=== PATIENT | male | born 2000 | race Caucasian/White ===

== ENCOUNTER 2023-04-08 18:10 | Inpatient (IN) | payer MEDICAID, OTHER ==
[2023-04-08 21:10] LABS: Amphetamine Screen,Urine Not Detected (NotDetected); Barbiturate Screen,Urine Not Detected (NotDetected); Benzodiazepines Screen,Urine Not Detected (NotDetected); Cocaine Screen,Urine Not Detected (NotDetected); Methadone Screen, Urine Not Detected (NotDetected); Opiate Screen,Urine Not Detected (NotDetected); Oxycodone Screen, Urine Not Detected (NotDetected); Phencyclidine Screen,Urine Not Detected (NotDetected); Tricyclic Antidepressant,Urine Not Detected (NotDetected); Urn Cannabinoid Scrn Not Detected (NotDetected)
[2023-04-09] MEDS ORDERED: HALOPERIDOL LACTATE 5 MG/ML 1 ML VIAL IM PRN (00:35)
[2023-04-09] MEDS ORDERED: IBUPROFEN 600 MG TAB PO PRN (00:35)
[2023-04-09] MEDS ORDERED: MAG HYDROX/AL HYDROX/SIMETH 30 ML CUP PO PRN (00:35)
[2023-04-09] MEDS ORDERED: MAGNESIUM HYDROXIDE 2,400 MG/10 ML CUP PO PRN (00:35)
[2023-04-09] MEDS ORDERED: ACETAMINOPHEN TAB 325 MG TAB PO PRN (00:35)
[2023-04-09] MEDS ORDERED: LORazepam 2 MG/ML INJ IM PRN (00:35)
--- NOTE | 2023-04-09 01:09 | ED ---
General Adult HPI - General Chief complaint: Psychiatric Symptoms Stated complaint: Mental Health Time Seen by Provider: 04/08/23 22:30 Source: patient Mode of arrival: ambulatory Limitations: no limitations - History of Present Illness Initial comments: Patient is 23-year-old male who presents to the emergency department for psychiatric evaluation. Patient states he has suicidal thoughts without plan or intention. States he is depressed and grieving the loss of his dad. He denies homicidal ideation. Denies visual and auditory hallucinations. Reports drinking 1 pint of liquor daily. Last drink was a few hours ago prior to arrival. Denies drug use. Patient sent from [facility] today. - Related Data Allergies Allergy/AdvReac Type Severity Reaction Status Date / Time No Known Allergies Allergy Verified 04/08/23 19:24 Review of Systems ROS Statement: Those systems with pertinent positive or pertinent negative responses have been documented in the HPI. ROS Other: All systems not noted in ROS Statement are negative. Past Medical History Past Medical History: Hypertension History of Any Multi-Drug Resistant Organisms: None Reported Past Surgical History: No Surgical Hx Reported Past Psychological History: Bipolar, Depression Smoking Status: Current every day smoker Past Alcohol Use History: Daily Past Drug Use History: None Reported General Exam Limitations: no limitations General appearance: alert, in no apparent distress Head exam: Present: atraumatic, normocephalic, normal inspection Respiratory exam: Present: normal lung sounds bilaterally. Absent: respiratory distress, wheezes, rales, rhonchi, stridor Cardiovascular Exam: Present: regular rate, normal rhythm, normal heart sounds. Absent: systolic murmur, diastolic murmur, rubs, gallop, clicks Psychiatric exam: Present: normal affect, depressed Skin exam: Present: warm, dry, intact, normal color. Absent: rash Course Vital Signs 04/08/23 19:21 Temperature 98.6 F Pulse Rate 111 H Respiratory 20 Rate Blood Pressure 145/84 O2 Sat by Pulse 97 Oximetry Medical Decision Making - Medical Decision Making Was pt. sent in by a medical professional or institution ([facility], PLATER APPRENTICE, urgent care, hospital, or prison...) When possible be specific @ -[facility] today Did you speak to anyone other than the patient for history (EMS, parent, family, police, friend...)? What history was obtained from this source @ -No Did you review nursing and triage notes (agree or disagree)? Why? @ -I reviewed and agree with nursing and triage notes Were old charts reviewed (outside hosp., previous admission, EMS record, old EKG, old radiological studies, urgent care reports/EKG's, prison records)? Report findings @ -No old charts were reviewed Differential Diagnosis (chest pain, altered mental status, abdominal pain women, abdominal pain men, vaginal bleeding, weakness, fever, dyspnea, syncope, headache, dizziness, GI bleed, back pain, seizure, CVA, palpatations, mental health)? @ -Differential Mental Health Depression, anxiety, bipolar, psychosis, schizophrenia, borderline personality, situational depression, adjustment disorder, behavioral disorder, brain tumor, malingering, substance abuse, encephalopathy, medication reaction, dementia, hypothyroidism, degenerative neurologic disorder, lupus.... This is not meant to be all-inclusive list EKG interpreted by me (3pts min.). @ -As above X-rays interpreted by me (1pt min.). @ -None done CT interpreted by me (1pt min.). @ -None done U/S interpreted by me (1pt. min.). @ -None done What testing was considered but not performed or refused? (CT, X-rays, U/S, labs)? Why? @ -None What meds were considered but not given or refused? Why? @ -None Did you discuss the management of the patient with other professionals (professionals i.e. , PA, PLATER APPRENTICE, lab, RT, psych nurse, social services analyst, inspector tool, teacher, marketing officer, case management director)? Give summary @ -No Was smoking cessation discussed for >3mins.? @ -No Was critical care preformed (if so, how long)? @ -No Were there social determinants of health that impacted care today? How? (Homelessness, low income, unemployed, alcoholism, drug addiction, transportation, low edu. Level, literacy, decrease access to med. care, penitentiary, rehab)? @ -No Was there de-escalation of care discussed even if they declined (Discuss DNR or withdrawal of care, Hospice)? DNR status @ -No What co-morbidities impacted this encounter? (DM, HTN, Smoking, COPD, CAD, Cancer, CVA, ARF, Chemo, Hep., AIDS, mental health diagnosis, sleep apnea, morbid obesity)? @Depression Was patient admitted / discharged? Hospital course, mention meds given and route, prescriptions, significant lab abnormalities, going to OR and other pertinent info. @Patient presenting with suicidal ideation. Further medical testing with laboratory studies and imaging not indicated at this time. Breathalyzer is 0.06. Patient is cleared medically for EPS. EPS evaluated patient and I spoke with him over the phone apparently [facility] fax over a report stating patient had plans to park his heading repairer will track. Also the patient has been hallucinating his dad asking him to "come with him." Patient admitted to psychiatric floor for further evaluation and management. Undiagnosed new problem with uncertain prognosis? @ -No Drug Therapy requiring intensive monitoring for toxicity (Heparin, Nitro, Insulin, Cardizem)? @ -No Were any procedures done? @ -No Diagnosis/symptom? @ -Suicidal ideation, hallucination Acute, or Chronic, or Acute on Chronic? @Acute Uncomplicated (without systemic symptoms) or Complicated (systemic symptoms)? @ -default Side effects of treatment? @ -No Exacerbation, Progression, or Severe Exacerbation? @ -No Poses a threat to life or bodily function? How? (Chest pain, [place], NM, pneumonia, PE, COPD, DKA, ARF, appy, cholecystitis, CVA, Diverticulitis, Homicidal, Suicidal, threat to staff... and all critical care pts) @ -Yes Dr. Oreilly is my attending - Lab Data Lab Results 04/08/23 Range/Units 20:07 Urine Opiates Screen Not Detected (NotDetected) Ur Oxycodone Screen Not Detected (NotDetected) Urine Methadone Screen Not Detected (NotDetected) Ur Propoxyphene Screen Not Detected (NotDetected) Ur Barbiturates Screen Not Detected (NotDetected) U Tricyclic Antidepress Not Detected (NotDetected) Ur Phencyclidine Scrn Not Detected (NotDetected) Ur Amphetamines Screen Not Detected (NotDetected) U Methamphetamines Scrn Not Detected (NotDetected) U Benzodiazepines Scrn Not Detected (NotDetected) Urine Cocaine Screen Not Detected (NotDetected) U Marijuana (THC) Screen Not Detected (NotDetected) Disposition Clinical Impression: Suicidal ideation Disposition: ADMITTED IP TO THIS HOSP Condition: Stable
[2023-04-09] MEDS: LORazepam 1 MG TAB PO PRN ×3 (01:56→20:08)
[2023-04-09] MEDS: chlordiazePOXIDE 25 MG CAP PO SCH ×3 (08:41→20:56)
[2023-04-09] MEDS: THIAMINE 100 MG TAB PO SCH (08:41)
[2023-04-09] MEDS: NICOTINE 14MG/24HR PATCH TRANSDERM SCH (08:41)
[2023-04-09] MEDS: NICOTINE GUM (POLACRILEX) 2 MG GUM BUCCAL PRN ×3 (13:25→21:12)
--- NOTE | 2023-04-09 13:49 | P.HP ---
Psychiatric H&P - . H&P Date: 04/09/23 History & Physical: Allergies Allergy/AdvReac Type Severity Reaction Status Date / Time No Known Allergies Allergy Verified 04/08/23 19:24 Vital Signs Temp 98.1 F 04/09/23 02:07 Pulse 106 H 04/09/23 02:07 Resp 18 04/09/23 02:09 BP 125/75 04/09/23 02:07 Pulse Ox 97 04/09/23 02:07 FiO2 Intake & Output 04/08/23 04/09/23 04/09/23 18:59 06:59 18:59 Weight 94.4 kg Laboratory Last Values Urine Opiates Screen Not Detected (NotDetected) 04/08/23 20:07 Ur Oxycodone Screen Not Detected (NotDetected) 04/08/23 20:07 Urine Methadone Screen Not Detected (NotDetected) 04/08/23 20:07 Ur Propoxyphene Screen Not Detected (NotDetected) 04/08/23 20:07 Ur Barbiturates Screen Not Detected (NotDetected) 04/08/23 20:07 U Tricyclic Antidepress Not Detected (NotDetected) 04/08/23 20:07 Ur Phencyclidine Scrn Not Detected (NotDetected) 04/08/23 20:07 Ur Amphetamines Screen Not Detected (NotDetected) 04/08/23 20:07 U Methamphetamines Scrn Not Detected (NotDetected) 04/08/23 20:07 U Benzodiazepines Scrn Not Detected (NotDetected) 04/08/23 20:07 Urine Cocaine Screen Not Detected (NotDetected) 04/08/23 20:07 U Marijuana (THC) Screen Not Detected (NotDetected) 04/08/23 20:07 Coronavirus (PCR) Not Detected (Not Detectd) 04/09/23 00:07 04/09/23 13:42 IDENTIFYING DATA: Patient is a 23-year-old male who is currently living with his stepparents in a house, has no kids is single, 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 HPI: Patient presented to the hospital yesterday for psychiatric evaluation as patient was having depression and suicidal thoughts and also a history of alcohol use. Patient's urine drug screen was negative. Patient was admitted voluntarily to the mental health unit and seen this morning agreeable to speak. Patient's states that he has been taking his "bipolar meds" and states that this been helping out with his anger however states that he has been hearing voices including his father's voice/at nighttime. He states that "he wants me to join him" and states that this is been going on for about a year now. He states that he broke down at home and his mom was worried about him because he was drinking heavily. He states that he recently relapsed on alcohol and claims that his binging about over a pint of vodka per day. He states that he usually takes the patrol injection however has missed it and is willing to get back on it. He claims that he has been having more thoughts of suicide however he did not have a specific plan. Claims that his mood has been depressed, he is endorsing anxiety. States that his sleep has been on and off. Appetite is fair. He states that his is having minor withdrawal symptoms, no shakes or tremors. Patient denies any flight of ideas racing thoughts and increased in goal directed behavior. Patient admits to using cigarettes daily. He claims that he has a long history of alcohol use disorder and has been to rehab twice in the past. PAST PSYCHIATRIC HISTORY: Patient states that he has a history of alcohol use disorder and bipolar disorder. Is currently on vivitrol monthly injection for alcohol cravings and also Depakote for mood stabilization. He claims that he was last psychiatrically hospitalized about 3 years ago at [facility]. He claims that he currently follows up with his psychiatrist Dr. Buchanan through [facility]. Claims that he did attempt to hang himself about 3 years ago. PMH:Past Medical History: Hypertension History of Any Multi-Drug Resistant Organisms: None Reported Past Surgical History: No Surgical Hx Reported Past Psychological History: Bipolar, Depression Smoking Status: Current every day smoker Past Alcohol Use History: Daily Past Drug Use History: None Reported ALLERGIES: as per EMR CHEMICAL DEPENDENCY HISTORY: as per HPI FAMILY PSYCHIATRIC/SUBSTANCE USE HISTORY: He claims that there is several people with mental health issues on his father's side. SOCIAL HISTORY: Patient was born and raised in [place] and also in [place], [place]. He claims that he completed up to the 10th grade in school. 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 He lives with his mother and step mom and dad. They live in a house. He is single. He claims that he did go to [facility] for drug related charges and also domestic violence charge. MENTAL STATUS EXAM: General Appearance: Patient appears to be well built, mildly disheveled, stated age is alert, directable, and attempts to cooperate. Patient appears to have poor hygiene and grooming. Behavior: Patient is seated without any agitated behavior. And attempts to cooperate. Speech: Patient's speech is fluent and nonpressured. [place] Mood/Affect: Patient reports their mood is depressed and anxious, affect is congruent and constricted. Suicidality/Homicidality: Patient denies having any homicidal ideation intent or plan. Denies any suicidal ideations intent or plan Perceptions: Patient denies any visual hallucinations and denies any auditory hallucinations Though content/process: There is no evidence of any delusional thought content and thought process is linear and goal-directed. Memory and concentration: AOX3, grossly intact for the purposes of this session. Can spell "WORLD" backwards Judgment and insight: poor STRENGTHS/WEAKNESSES: strength is that patient is resilient. Weakness is that patient has poor judgment and is impulsive INTELLECT: average IMPRESSIONS: Bipolar disorder, current episode depressed with psychotic features Alcohol use disorder, severe dependence Nicotine dependence PLAN: -Patient is admitted under voluntary status to MHU for stabilization of psychiatric symptoms and safety. Patient has signed adult voluntary form and medication consent and is placed in patient's chart. -Medications : Will start patient on his home dose of depakote 500 mg qhs for mood stabilization, buspar tid prn for anxiety, seroquel 50 mg qhs for mood stabilization/psychosis. patient requested to receive the vivitrol injection the day before he will be discharged. librium 25 mg tid for etoh withdrawal. -Ativan and Haldol PRN for agitation/aggression -Started thiamine, MVM for etoh use -CIWA protocol with Ativan PRN for ETOH withdrawal -Patient was counselled on substance abuse and desired to cut back on use -Patient was informed of the risks, benefits and side effects of the medication and patient verbally consented to taking the medications. Patient signed med consent form and was placed in chart. -Internal Medicine consult to perform medical evaluation and physical. -NRT - nicotine patch -SW on board for discharge planning. Encourage patient to participate in groups to work on coping skills. 04/09/23 13:49
[2023-04-09] MEDS: busPIRone HCl 10 MG TAB PO PRN ×2 (15:14→20:56)
[2023-04-09 15:49] LABS: Appearance,Urine Clear (Clear); Bilirubin,Urine Negative (Negative); Blood,Urine Negative (Negative); Calcium Oxalate Crystals,Urine Moderate /hpf; Color,Urine Yellow; Glucose,Urine (UA) Negative (Negative); Ketones,Urine Negative (Negative); Leukocyte Esterase,Urine Small (Negative); Mucus,Urine Rare /hpf; Nitrite,Urine Negative (Negative); PH, Urine 6.5 (5.0-8.0); Protein,Urine Trace (Negative); Specific Gravity,Urine 1.025 (1.001-1.035); Urobilinogen,Urine <2.0 mg/dL (<2.0); WBC,Urine 3 /hpf (0-5)
[2023-04-09] MEDS ORDERED: DIVALPROEX ER 500 MG TAB.ER.24H PO SCH (18:00)
[2023-04-09] MEDS: QUEtiapine 50 MG TAB PO SCH (20:56)
[2023-04-10] MEDS: NICOTINE 14MG/24HR PATCH TRANSDERM SCH (08:35)
[2023-04-10] MEDS: chlordiazePOXIDE 25 MG CAP PO SCH (08:35)
[2023-04-10] MEDS: THIAMINE 100 MG TAB PO SCH (08:35)
[2023-04-10] MEDS: busPIRone HCl 10 MG TAB PO PRN ×3 (08:36→20:24)
[2023-04-10] MEDS: DIVALPROEX ER 250 MG TAB.ER.24H PO SCH ×2 (10:32→20:21)
[2023-04-10] MEDS: NICOTINE GUM (POLACRILEX) 2 MG GUM BUCCAL PRN ×3 (10:33→20:24)
[2023-04-10 10:34] LABS: Basophils % (A) 0 %; Eosinophils # (A) 0.1 k/uL (0-0.7); Eosinophils % (A) 2 %; HCT 44.8 % (39.0-53.0); HGB 15.4 gm/dL (13.0-17.5); Lymphocytes % (A) 20 %; MCH 30.9 pg (25.0-35.0); MCHC 34.4 g/dL (31.0-37.0); MCV 89.8 fL (80.0-100.0); Mean Platelet Volume 9.1; Monocytes # (A) 0.2 k/uL (0-1.0); Monocytes % (A) 5 %; Neutrophils # (A) 3.6 k/uL (1.3-7.7); Neutrophils % (A) 72 %; Platelet Count 180 k/uL (150-450); RBC 4.99 m/uL (4.30-5.90); RDW 12.7 % (11.5-15.5); WBC 4.9 k/uL (3.8-10.6)
[2023-04-10 10:44] LABS: ALT 75 U/L (4-49); AST 47 U/L (17-59); African American GFR (CKD) >90 (>60 ml/min/1.73 sqM); Albumin 4.2 g/dL (3.5-5.0); Alkaline Phosphatase 80 U/L (38-126); Anion Gap 8 mmol/L; Blood Urea Nitrogen 14 mg/dL (9-20); Calcium 9.5 mg/dL (8.4-10.2); Carbon Dioxide 28 mmol/L (22-30); Chloride 103 mmol/L (98-107); Glucose 92 mg/dL (74-99); Non-African American GFR(CKD) >90 (>60 ml/min/1.73 sqM); Potassium 4.5 mmol/L (3.5-5.1); Sodium 139 mmol/L (137-145); Total Bilirubin 0.6 mg/dL (0.2-1.3); Total Protein 6.9 g/dL (6.3-8.2)
--- NOTE | 2023-04-10 11:43 | P.PN ---
Progress Note - Text Progress Note Date: 04/10/23 Interval History: Patient was seen [wandering the hallways] and was directable and agreeable to speak with bid writer in the office. Patient claims that he is doing a bit better today with regards to his mood and anxiety. He states that he slept fairly last night and claims to be feeling fairly tired this morning as well. He states that after he took his medications was just going to head back to his room for a nap. We spoke about the medications that are likely making him feel more sedated. He states that is okay with continuing on with treatment and has been trying to go to groups. He states that his withdrawal symptoms have been improving and he is denying any tremors or shakes. States that his anxiety is also improving mildly since yesterday. States that he slept fairly throughout the night and has a fair appetite. At this time patient denies any suicidal or homical ideations, intent or plan. Patient denies any auditory, visual hallucinations and denies any paranoia or delusions. Patient denies any side effects from the medications and has been compliant with meds. Mental Status Exam: General Appearance: Patient appears to be well built, mildly disheveled, stated age is alert, directable, and attempts to cooperate. Patient appears to have improving hygiene and grooming. Behavior: Patient is seated without any agitated behavior. attempts to cooperate. Speech: Patient's speech is fluent and nonpressured. [place], improving mildly Mood/Affect: Patient reports their mood is depressed and anxious, affect is congruent and constricted. Suicidality/Homicidality: Patient denies having any homicidal ideation intent or plan. Denies any suicidal ideations intent or plan Perceptions: Patient denies any visual hallucinations and denies any auditory hallucinations Though content/process: There is no evidence of any delusional thought content and thought process is linear and goal-directed. Focused on discharge. Memory and concentration: AOX3, grossly intact for the purposes of this session Judgment and insight: Improving mildly. IMPRESSIONS: Bipolar disorder, current episode depressed with psychotic features Alcohol use disorder, severe dependence Nicotine dependence PLAN: -Patient is admitted under voluntary status to MHU for stabilization of psychi atric symptoms and safety. Patient has signed adult voluntary form and medication consent and is placed in patient's chart. -Medications : change depakote 250 mg BID dosing for mood stabilization, in crease buspar tid prn for anxiety, continue seroquel 50 mg qhs for mood stabilization/psychosis. patient requested to receive the vivitrol injection and will be given thursday morning before he will be discharged. decrease/taper down over the weekend pts librium down to 20 mg tid for etoh withdrawal. -Ativan and Haldol PRN for agitation/aggression -thiamine, MVM for etoh use -CIWA protocol with Ativan PRN for ETOH withdrawal -Internal Medicine consult to perform medical evaluation and physical. -NRT - nicotine patch -SW on board for discharge planning. Encourage patient to participate in groups to work on coping skills. likely dicharge thursday if patient is doing better by then.
[2023-04-10] MEDS: haloperidoL 5 MG TAB PO PRN (18:45)
[2023-04-10] MEDS: LORazepam 1 MG TAB PO PRN (18:45)
[2023-04-10] MEDS: QUEtiapine 50 MG TAB PO SCH (20:21)
--- NOTE | 2023-04-11 01:28 | P.MDCNMH ---
History of Present Illness H&P Date: 04/10/23 Chief Complaint: medicla evaluation 23 year old male presented for psych evaluation , due to depression , and suicidal ideation , patient is grieving his dad. he denies any hallucinations. he denies any fever, chills, cough, sore throat, chest pain , trouble breathing , nausea , vomiting, abd pain , changes in urinary or bowel habits. he admits to tobacco smoking, he denies illicit drugs or alcohol Review of Systems Pertinent positives as noted in HPI. All other systems were reviewed and are negative Past Medical History Past Medical History: Hypertension History of Any Multi-Drug Resistant Organisms: None Reported Past Surgical History: No Surgical Hx Reported Past Anesthesia/Blood Transfusion Reactions: No Reported Reaction Past Psychological History: Bipolar, Depression Smoking Status: Current every day smoker Past Alcohol Use History: Daily Additional Past Alcohol Use History / Comment(s): pt statement varies between a pint and a fifth of vodka dailyt Past Drug Use History: Cocaine Additional Drug Use History / Comment(s): pt quit drugs 5 years ago, hx coke, crack, meth Medications and Allergies Allergies Allergy/AdvReac Type Severity Reaction Status Date / Time No Known Allergies Allergy Verified 04/08/23 19:24 Physical Exam Constitutional: No acute distress, Eyes: Anicteric sclerae, moist conjunctiva, Pupils equal round reactive to light ENMT: NC/AT Oropharynx clear, no erythema, or exudates Lungs: Clear to auscultation Clear to percussion Normal respiratory effort, no accessory muscle use Cardiovascular: Heart regular in rate and rhythm, No murmurs, gallops, or rubs No peripheral edema Abdominal: Soft Nontender, no guarding, rebound or rigidity Abdomen moving with respiration Normoactive bowel sounds No hepatomegaly, No splenomegaly No palpable mass No abdominal wall hernia noted Skin: Normal temperature, tone, texture, turgor Extremities: No digital cyanosis No clubbing Pedal pulses intact and symmetrical Radial pulses intact and symmetrical No calf tenderness Psychiatric: Alert and oriented to person, place and time Neuro Muscles Strength 5/5 in all 4 extremities Sensation to light touch grossly present throughout Cranial Nerve Examination - Cranial Nerves Cranial Nerve II- Optic: Intact Cranial Nerve III- Oculomotor: Intact Cranial Nerve IV- Trochlear: Intact Cranial Nerve V- Trigeminal: Intact Cranial Nerve - Abducens: Intact Cranial Nerve VII- Facial: Intact Cranial Nerve VIII- Auditory: Intact Cranial Nerve IX- Glossopharyngeal: Intact Cranial Nerve X- Vagus: Intact Cranial Nerve XI- Accessory: Intact Cranial Nerve XII- Hypoglossal: Intact Results CBC & Chem 7: 04/10/23 10:00 04/10/23 10:00 Labs: Abnormal Lab Results - Last 24 Hours (Table) 04/10/23 Range/Units 10:00 ALT 75 H (4-49) U/L Assessment and Plan Assessment: depression and suicidal ideation management per psych tobacco smoking NRT offered counseled to quit smoking blood work reviewed , unremarkable Hgb 15.4 WBC 4.9 Bun 14 Cr 0.85 thank you for this consultation
[2023-04-11] MEDS: NICOTINE 14MG/24HR PATCH TRANSDERM SCH (08:21)
[2023-04-11] MEDS: THIAMINE 100 MG TAB PO SCH (08:22)
[2023-04-11] MEDS: DIVALPROEX ER 250 MG TAB.ER.24H PO SCH ×2 (08:22→20:31)
[2023-04-11] MEDS: busPIRone HCl 10 MG TAB PO PRN (08:24)
--- NOTE | 2023-04-11 11:22 | P.PN ---
Progress Note - Text Progress Note Date: 04/11/23 Interval History: Patient was seen wandering the hallways and was directable and agreeable to sp constanza with health technical writer in the office. He states that his mood is "good ". He reports tolerating the current medications okay but says that he has been very hungry. Discussed potential side effects of the medications including increased appetite, weight gain, hair loss, etc. Patient admits that he was less interested in medications in the past but has been able to understand the need for treatment more currently. He hopes to continue to maintain sobriety. Discussed the recommendations of attending call anonymous meetings in addition to receiving vivitrol injections. Patient denies current symptoms of alcohol withdrawal. He admits to having bouts of anxiety in between times when he is drinking. Patient was provided psychoeducation on alcohol and its effects on the brain, anxiety, etc. He reports sleeping well. He also states he has been participating in groups. He is noted to be interacting with others on the unit. He is future oriented and states that he understands why his mother wanted him to be admitted here. At this time patient denies any suicidal or homicidal ideations, intent or plan. Patient denies any auditory, visual hallucinations and denies any paranoia or delusions. Patient denies any side effects from the medications and has been compliant with meds. Mental Status Exam: General Appearance: Patient appears to be well built, mildly disheveled, stated age is alert, directable, and attempts to cooperate. Patient appears to have improving hygiene and grooming. Behavior: Patient is seated without any agitated behavior. attempts to cooperate. Speech: Patient's speech is fluent and nonpressured. [place], improving mildly Mood/Affect: Patient reports their mood is "good", affect is saf and constricted. Suicidality/Homicidality: Patient denies having any homicidal ideation intent or plan. Denies any suicidal ideations intent or plan Perceptions: Patient denies any visual hallucinations and denies any auditory hallucinations Though content/process: There is no evidence of any delusional thought content and thought process is linear and goal-directed. Memory and concentration: AOX3, grossly intact for the purposes of this session Judgment and insight: Improving mildly. IMPRESSIONS: Bipolar disorder Alcohol use disorder, severe dependence, in withdrawal Nicotine dependence PLAN: -Patient is admitted under voluntary status to MHU for stabilization of psychiatric symptoms and safety. Patient has signed adult voluntary form and medication consent and is placed in patient's chart. -Medications : Continue depakote 250 mg BID dosing for mood stabilization Change buspar to 10 mg BID for anxiety Stop seroquel 50 mg qhs as it is likely contributing to increased appetite vivitrol injection will be given thursday morning before he will be discharged. decrease/taper down to 10 mg tid for etoh withdrawal and decrease to 5 mg TID tomorrow -Ativan and Haldol PRN for agitation/aggression -thiamine, MVM for etoh use -CIWA protocol with Ativan PRN for ETOH withdrawal -Internal Medicine consult to perform medical evaluation and physical. -NRT - nicotine patch -SW on board for discharge planning. Encourage patient to participate in groups to work on coping skills. likely dicharge thursday if patient is doing better by then.
[2023-04-11] MEDS: LORazepam 1 MG TAB PO PRN ×2 (11:28→17:14)
[2023-04-11] MEDS: NICOTINE GUM (POLACRILEX) 2 MG GUM BUCCAL PRN (17:15)
[2023-04-11] MEDS: busPIRone HCl 10 MG TAB PO SCH (20:31)
[2023-04-11] MEDS: haloperidoL 5 MG TAB PO PRN (20:55)
[2023-04-12 05:06] VITALS: RESP 16
[2023-04-12] MEDS: NICOTINE 14MG/24HR PATCH TRANSDERM SCH (08:34)
[2023-04-12] MEDS: THIAMINE 100 MG TAB PO SCH (08:35)
[2023-04-12] MEDS: busPIRone HCl 10 MG TAB PO SCH ×3 (08:35→20:27)
[2023-04-12] MEDS: DIVALPROEX ER 250 MG TAB.ER.24H PO SCH (08:35)
[2023-04-12] MEDS: LORazepam 1 MG TAB PO PRN ×2 (12:01→20:26)
[2023-04-12] MEDS: haloperidoL 5 MG TAB PO PRN (12:01)
--- NOTE | 2023-04-12 14:33 | P.PN ---
Progress Note - Text Progress Note Date: 04/12/23 Interval History: Patient was seen wandering the hallways and was directable and agreeable to wm apodaca with expert medical writer. He states that his mood is "anxious". He states that he feels it is "hard being away from home ". He reports working at home and rarely having to leave the home for very long. As a result, patient states that he has been feeling slightly anxious and wonders if his medication could be increased. Discussed increasing BuSpar and patient was agreeable with this. Patient states that his appetite has stabilized and is no longer feeling as hungry as he did yesterday. However, patient states that he had trouble falling asleep since the discontinuation of Seroquel. As a result, discussed dosing Depakote all at bedtime and patient was agreeable with this. Will proceed with Librium taper which patient is agreeable with; he denies symptoms of alcohol withdrawal currently. Patient is also agreeable with receiving his Vivitrol injection tomorrow. He also states he has been participating in groups. At this time patient denies any suicidal or homicidal ideations, intent or plan. Patient denies any auditory, visual hallucinations and denies any paranoia or delusions. Patient denies any side effects from the medications and has been compliant with meds. Mental Status Exam: General Appearance: Patient appears to be well built, stated age is alert, directable, and attempts to cooperate. Patient appears to have improving hygiene and grooming. Behavior: Patient is seated without any agitated behavior. attempts to cooperate. No tremors Speech: Patient's speech is fluent and nonpressured. [place], improving mildly Mood/Affect: Patient reports their mood is "anxious", affect is congruent and constricted. Suicidality/Homicidality: Patient denies having any homicidal ideation intent or plan. Denies any suicidal ideations intent or plan Perceptions: Patient denies any visual hallucinations and denies any auditory hallucinations Though content/process: There is no evidence of any delusional thought content and thought process is linear and goal-directed. Memory and concentration: AOX3, grossly intact for the purposes of this session Judgment and insight: Improving mildly. IMPRESSIONS: Bipolar disorder Alcohol use disorder, severe dependence, in withdrawal Nicotine dependence PLAN: -Patient is admitted under voluntary status to MHU for stabilization of psychiatric symptoms and safety. Patient has signed adult voluntary form and medication consent and is placed in patient's chart. -Medications : Change depakote to 500 qHS for mood stabilization Increase buspar to 15 mg BID for anxiety vivitrol injection will be given thursday morning before he will be discharged. Discontinue Librium today -Ativan and Haldol PRN for agitation/aggression -thiamine, MVM for etoh use -CIWA protocol with Ativan PRN for ETOH withdrawal -Internal Medicine consult to perform medical evaluation and physical. -NRT - nicotine patch -SW on board for discharge planning. Encourage patient to participate in groups to work on coping skills. likely dicharge thursday if patient is doing better by then.
[2023-04-12] MEDS ORDERED: DIVALPROEX ER 500 MG TAB.ER.24H PO SCH (21:00)
[2023-04-12] MEDS ORDERED: busPIRone HCl 5 MG TAB PO SCH (21:00)
[2023-04-13] MEDS: busPIRone HCl 10 MG TAB PO SCH (08:21)
[2023-04-13] MEDS: NICOTINE 14MG/24HR PATCH TRANSDERM SCH (08:21)
[2023-04-13] MEDS: THIAMINE 100 MG TAB PO SCH (08:21)
[2023-04-13] MEDS ORDERED: NALTREXONE MICROSPHERES 380 MG VIAL (NO COST - VIVITROL) IM ONE (09:00)
--- NOTE | 2023-04-13 10:26 | P.DS ---
Providers Date of admission: 04/09/23 00:20 Expected date of discharge: 04/13/23 Attending physician: Kehinde Torres MD Consults: 04/09/23 00:35 Consult Physician Routine Consulting Provider: Floyd Medina Consult Reason/Comments: [facility]&p medical managment Do you want consulting provider notified?: Already Contacted Primary care physician: Stated None - Discharge Diagnosis(es) (1) Bipolar disorder, curr episode depressed, severe, w/psychotic features Current Visit: Yes Status: Acute Priority: High (2) Alcohol use disorder, severe, dependence Current Visit: Yes Status: Acute Priority: High (3) Nicotine dependence Current Visit: Yes Status: Acute Priority: Low Hospital Course: Admission HPI: Admission note was completed by radio script writer "Patient is a 23-year-old male who is currently living with his stepparents in a house, has no kids is single, 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 Patient presented to the hospital yesterday for psychiatric evaluation as patient was having depression and suicidal thoughts and also a history of alcohol use. Patient's urine drug screen was negative. Patient was admitted voluntarily to the mental health unit and seen this morning agreeable to speak. Patient's states that he has been taking his "bipolar meds" and states that this been helping out with his anger however states that he has been hearing voices including his father's voice/at nighttime. He states that "he wants me to join him" and states that this is been going on for about a year now. He states that he broke down at home and his mom was worried about him because he was drinking heavily. He states that he recently relapsed on alcohol and claims that his binging about over a pint of vodka per day. He states that he usually takes the patrol injection however has missed it and is willing to get back on it. He claims that he has been having more thoughts of suicide however he did not have a specific plan. Claims that his mood has been depressed, he is endorsing anxiety. States that his sleep has been on and off. Appetite is fair. He states that his is having minor withdrawal symptoms, no shakes or tremors. Patient denies any flight of ideas racing thoughts and increased in goal directed behavior. Patient admits to using cigarettes daily. He claims that he has a long history of alcohol use disorder and has been to rehab twice in the past." Hospital course: Upon admission to the unit patient was directable and agreeable to commence treatment and signed adult voluntary form . Patient got along well with other patients on the unit and followed unit protocol. Patient was compliant with the medications and denied any side effects throughout hospital course. Patient was started on scheduled Librium with taper for alcohol withdrawal symptoms, Depakote 500 mg daily at bedtime for mood stabilization, BuSpar 20 mg 3 times a day for anxiety, patient was tried on Seroquel however due to increased appetite and this was discontinued. Patient is currently on vivitrol injection however it was being held due to patient request and will be given today on 04/13 prior to discharge. Patient spoke of his stressors and engaged in therapy both group and individual. Patient was also seen by medical team for history and physical exam. Throughout the course of the hospitalization patient gradually improved with regards to mood, anxiety, hallucinations/voices, sleep and became more future oriented with improved insight and judgment. On the day of discharge patient denied any suicidal or homicidal ideations intent or plan denied any auditory or visual hallucinations. Patient endorsed wanting to live for his health and family. The patient denied any access to guns or weapons. Patient denied any paranoia and did not endorse any delusions. Patient does have a significant history of substance abuse and was counseled on abstaining from all substances including alcohol and marijuana. Patient was offered however declined inpatient substance-abuse rehab. Patient elected to do outpatient substance use treatment program through [facility]. Patient was also counseled on the medications and need for regular compliance and was encouraged to follow-up with their outpatient appointment for mental health and also for primary care. Prior to discharge a family meeting will be arranged by social welfare research worker to answer any questions and ensure safety upon discharge. Control Engineer also spoke with patients mother Milady today at [phone], discussed care and treatment and also emphasized the importance of having guns and wepaons locked away in the house. also spoke with her about the importance of remianing supportive in his sobriety and relayed the likely trigger of being around drinking and etoh and how it is percipitating his sx and declining mental health condition. she agreed and understood. Mental status exam: General Appearance: Patient appears to be stated age is alert, pleasant, and cooperative. Patient is in no acute distress and has improved hygiene and grooming Behavior: Patient is calmly seated without any agitated behavior. Speech: Patient's speech is fluent and nonpressured. Mood/Affect: Patient reports their mood is "good", affect is congruent Suicidality/Homicidality: Patient denies having any suicidal or homicidal ideation intent or plan. Perceptions: Patient denies any auditory or visual hallucinations. Though content/process: There is no evidence of any delusional thought content and thought process is linear and goal-directed. more future oriented Memory and concentration: AOX3, grossly intact for the purposes of this session. Can spell "WORLD" backwards correctly. Judgment and insight: improved with guarded prognosis Impression: Bipolar disorder current episode depressed with psychotic features Alcohol use disorder severe dependence generalized anxiety disorder Nicotine dependence Plan: -Continue with discharge today as patient has improved and stabilized psychiatrically and is not currently an imminent threat to himself and/or others. Patient will remain at chronically elevated risk for harm to self and/or others due to his impulsivity and substance abuse. -Continue medications: Depakote 500 mg daily at bedtime for mood stabilization, BuSpar 20 mg 3 times a day for anxiety, patient will be given a two-week supply of trazodone 50 mg daily at bedtime when necessary for insomnia. Continue with vivitrol injection IM, will give monthly dose today on 04/13 and will be due for next dose on 05/11. -Patient was counseled on the need for medication compliance and appropriate follow-up at mental health and also primary care for medical issues. Patient verbalized understanding and agreed. -Social work to arrange for and conduct family meeting to ensure safety upon discharge and answer any questions/concerns. Social work also to arrange for patients follow up appointments with [facility] for psychiatric care along with follow up with primary care provider. -Patient counseled on abstaining from recreational drugs and marijuana and alcohol. Was informed/educated on the adverse effects on their physical and mental health. Patient verbally agreed and understood. Patient was offered substance abuse treatment however declined at this time. -Patient was instructed to return to the hospital or seek immediate medical care if their psychiatric or medical symptoms do worsen or reoccur. Allergies Allergy/AdvReac Type Severity Reaction Status Date / Time No Known Allergies Allergy Verified 04/08/23 19:24 Laboratory Results WBC 4.9 k/uL (3.8-10.6) 04/10/23 10:00 RBC 4.99 m/uL (4.30-5.90) 04/10/23 10:00 Hgb 15.4 gm/dL (13.0-17.5) 04/10/23 10:00 Hct 44.8 % (39.0-53.0) 04/10/23 10:00 MCV 89.8 fL (80.0-100.0) 04/10/23 10:00 MCH 30.9 pg (25.0-35.0) 04/10/23 10:00 MCHC 34.4 g/dL (31.0-37.0) 04/10/23 10:00 RDW 12.7 % (11.5-15.5) 04/10/23 10:00 Plt Count 180 k/uL (150-450) 04/10/23 10:00 MPV 9.1 04/10/23 10:00 Neutrophils % 72 % 04/10/23 10:00 Lymphocytes % 20 % 04/10/23 10:00 Monocytes % 5 % 04/10/23 10:00 Eosinophils % 2 % 04/10/23 10:00 Basophils % 0 % 04/10/23 10:00 Neutrophils # 3.6 k/uL (1.3-7.7) 04/10/23 10:00 Lymphocytes # 1.0 k/uL (1.0-4.8) 04/10/23 10:00 Monocytes # 0.2 k/uL (0-1.0) 04/10/23 10:00 Eosinophils # 0.1 k/uL (0-0.7) 04/10/23 10:00 Basophils # 0.0 k/uL (0-0.2) 04/10/23 10:00 Sodium 139 mmol/L (137-145) 04/10/23 10:00 Potassium 4.5 mmol/L (3.5-5.1) 04/10/23 10:00 Chloride 103 mmol/L (98-107) 04/10/23 10:00 Carbon Dioxide 28 mmol/L (22-30) 04/10/23 10:00 Anion Gap 8 mmol/L 04/10/23 10:00 BUN 14 mg/dL (9-20) 04/10/23 10:00 Creatinine 0.85 mg/dL (0.66-1.25) 04/10/23 10:00 Est GFR (CKD-EPI)AfAm >90 (>60 ml/min/1.73 sqM) 04/10/23 10:00 Est GFR (CKD-EPI)NonAf >90 (>60 ml/min/1.73 sqM) 04/10/23 10:00 Glucose 92 mg/dL (74-99) 04/10/23 10:00 Calcium 9.5 mg/dL (8.4-10.2) 04/10/23 10:00 Total Bilirubin 0.6 mg/dL (0.2-1.3) 04/10/23 10:00 AST 47 U/L (17-59) 04/10/23 10:00 ALT 75 U/L (4-49) H 04/10/23 10:00 Alkaline Phosphatase 80 U/L (38-126) 04/10/23 10:00 Total Protein 6.9 g/dL (6.3-8.2) 04/10/23 10:00 Albumin 4.2 g/dL (3.5-5.0) 04/10/23 10:00 Urine Color Yellow 04/08/23 20:00 Urine Appearance Clear (Clear) 04/08/23 20:00 Urine pH 6.5 (5.0-8.0) 04/08/23 20:00 Ur Specific Center 1.025 (1.001-1.035) 04/08/23 20:00 Urine Protein Trace (Negative) H 04/08/23 20:00 Urine Glucose (UA) Negative (Negative) 04/08/23 20:00 Urine Ketones Negative (Negative) 04/08/23 20:00 Urine Blood Negative (Negative) 04/08/23 20:00 Urine Nitrite Negative (Negative) 04/08/23 20:00 Urine Bilirubin Negative (Negative) 04/08/23 20:00 Urine Urobilinogen <2.0 mg/dL (<2.0) 04/08/23 20:00 Ur Leukocyte Esterase Small (Negative) H 04/08/23 20:00 Urine WBC 3 /hpf (0-5) 04/08/23 20:00 Calcium Oxalate Crystal Moderate /hpf (None) H 04/08/23 20:00 Urine Mucus Rare /hpf (None) H 04/08/23 20:00 Urine Opiates Screen Not Detected (NotDetected) 04/08/23 20:07 Ur Oxycodone Screen Not Detected (NotDetected) 04/08/23 20:07 Urine Methadone Screen Not Detected (NotDetected) 04/08/23 20:07 Ur Propoxyphene Screen Not Detected (NotDetected) 04/08/23 20:07 Ur Barbiturates Screen Not Detected (NotDetected) 04/08/23 20:07 U Tricyclic Antidepress Not Detected (NotDetected) 04/08/23 20:07 Ur Phencyclidine Scrn Not Detected (NotDetected) 04/08/23 20:07 Ur Amphetamines Screen Not Detected (NotDetected) 04/08/23 20:07 U Methamphetamines Scrn Not Detected (NotDetected) 04/08/23 20:07 U Benzodiazepines Scrn Not Detected (NotDetected) 04/08/23 20:07 Urine Cocaine Screen Not Detected (NotDetected) 04/08/23 20:07 U Marijuana (THC) Screen Not Detected (NotDetected) 04/08/23 20:07 Coronavirus (PCR) Not Detected (Not Detectd) 04/09/23 00:07 Vital Signs Temp 97.3 F L 04/12/23 10:40 Pulse 73 04/12/23 10:40 Resp 16 04/12/23 05:05 BP 132/75 04/12/23 10:40 Pulse Ox 97 04/09/23 02:07 FiO2 Intake & Output 04/12/23 04/13/23 04/13/23 18:59 06:59 18:59 Weight 98.2 kg Patient Condition at Discharge: Stable Plan - Discharge Summary Discharge Rx Participant: No New Discharge Prescriptions: New busPIRone HCl [Buspar] 20 mg PO TID 30 Days #180 tab Divalproex ER [Depakote ER] 500 mg PO HS 30 Days #30 tab traZODone HCL [Desyrel] 50 mg PO HS PRN 14 Days #14 tab PRN Reason: Insomnia Nicotine 14Mg/24Hr Patch [Habitrol] 1 patch TRANSDERM DAILY 14 Days #14 patch Nicotine Gum (Polacrilex) [Nicorette] 2 mg BUCCAL Q4HR PRN 30 Days #180 pieceofgum PRN Reason: Nicotine Cravings Ibuprofen [Motrin] 600 mg PO Q6HR PRN tab PRN Reason: Moderate Pain (Scale 4 To 6) Thiamine [Vitamin B-1] 100 mg PO DAILY 30 Days #30 tab Discharge Medication List Divalproex ER [Depakote ER] 500 mg PO HS 30 Days #30 tab 04/13/23 [Rx] Ibuprofen [Motrin] 600 mg PO Q6HR PRN tab 04/13/23 [Rx] Nicotine 14Mg/24Hr Patch [Habitrol] 1 patch TRANSDERM DAILY 14 Days #14 patch 04/13/23 [Rx] Nicotine Gum (Polacrilex) [Nicorette] 2 mg BUCCAL Q4HR PRN 30 Days #180 pieceofgum 04/13/23 [Rx] Thiamine [Vitamin B-1] 100 mg PO DAILY 30 Days #30 tab 04/13/23 [Rx] busPIRone HCl [Buspar] 20 mg PO TID 30 Days #180 tab 04/13/23 [Rx] traZODone HCL [Desyrel] 50 mg PO HS PRN 14 Days #14 tab 04/13/23 [Rx] Follow up Appointment(s)/Referral(s): [facility] [place] [Outside] - 1 Week None,Stated [Primary Care Provider] - 1 Week Activity/Diet/Wound Care/Special Instructions: Avoid the use of street drugs and alcohol. Take all medications as prescribed. When you are in need of refills on your medications, please contact your medical provider and/or outpatient psychiatrist to have this done. Please go to scheduled outpatient appointments for aftercare treatment. If symptoms return or become worse, call the crisis line at and/or go to the nearest emergency room for evaluation. Discharge Disposition: HOME SELF-CARE
[2023-04-13 11:09] VITALS: BP 142/90; PULSE 98; TEMP 98
== END 2023-04-13 11:19 | disposition home or self-care (01) | DRG 753 ==
LOC: EC 18:10 → 3MHU 04-09 00:20
PROVIDERS: ADMIT Psychiatry & Neurology Psychiatry; ATTEND Psychiatry & Neurology Psychiatry
DX: F31.5 Bipolar disorder, current episode depressed, severe, with psychotic features (principal); F41.1 Generalized anxiety disorder; G47.00 Insomnia, unspecified; I10 Essential (primary) hypertension; F10.239 Alcohol dependence with withdrawal, unspecified; F17.210 Nicotine dependence, cigarettes, uncomplicated; R45.851 Suicidal ideations; Z79.899 Other long term (current) drug therapy; Z28.310 Unvaccinated for COVID-19; Z20.822 Contact with and (suspected) exposure to COVID-19; Z28.21 Immunization not carried out because of patient refusal
CPT/HCPCS: 80053; 80306; 81001; 82075; 85025; 87635